=== PATIENT | female | born 1950 | race Caucasian/White ===

== ENCOUNTER 2022-05-21 22:45 | Observation (INO) | payer MEDICARE ==
[~2022-05-21] VITALS: Ht 170.2 cm; Wt 101.4 kg
--- NOTE | ~2022-05-21 | EKG ---
[facility] [address] [facility] [place], [place] [address] Draft EK completed, results pending confirmation PATIENT NAME: FEI WICK Electrocardiogram DATE OF : 50 PHYSICIAN: PRELIMINARY REPORT #: [id number] REPORT IS CONFIDENTIAL AND NOT TO BE RELEASED WITHOUT AUTHORIZATION
[~2022-05-21 22:45] MED LIST: ALVESCO6.1 G1 INH; ARNUITY ELLIPT50 MCG; BLACK ELDERBER1 EACH PO; CHROMIUM PICO200 MC1 PO; CYANOCOBAL1000 MCG/M IM; ELIQUIS5 MG PO; EYE DROPS15 ML; GLUCOSAMINE H1500 MG PO; HYDROCODON-ACE1 EA10 PO; K2 PLUS D3 TAB1 EACH PO; LIPITOR20 MG PO; MAGNESIUM500 MG PO; METOPROLOL TART25 MG; MULTI VITAMIN1 EACH PO; N-ACETYL-L-CYS600 MG PO; NASAL DECONGEST30 MG PO; PRADAXA150 MG PO; PROBIOTIC250 MG PO; SELRX180 ML TOP; SUPER B MAXI C0.4 MG PO; SUPERIOR DIGES1 EACH PO; VENTOLIN HFA18 GM INH; VITAMIN C500 M5 PO; ZINC50 MG PO
--- OUTSIDE RECORDS SUMMARY | 2022-05-21 22:48 | XMS ---
PreManage Notification: FEI WICK Security Contracts Specialist Events No recent Security Events currently on file CRITERIA MET - [facility] There are no care providers on record at this time. John has no Care Guidelines for this patient. Leo VISIT COUNT (12 MO.) 1 WILLIAM Thorpe TOTAL 1 NOTE: Visits indicate total known visits. ED/UCC VISIT TRACKING (12 MO.) 05/21/2022 22:46 WILLIAM Jain [place] TYPE: Emergency COMPLAINT: - POST OP ISSUE INPATIENT VISIT TRACKING (12 MO.) No inpatient visits to display in this time frame [email or web address]
[2022-05-22] MEDS ORDERED: VITAMIN D310 MC2 PO (03:14)
--- NOTE | 2022-05-22 03:44 | NUR ---
0250 - PT ARRIVED FROM ED VIA STRETCHER, ON ROOM AIR. COOPERATIVE 0305 - FLAT AFFECT, COOP WITH ASSESSMENT, UPPER ABD INCISION AREA W SUTURES IN PLACE, RED, RAISED, TENDER TO TOCUH, VERY FAINT TO RARE BOWEL TONES. DENIES PASSING RECTAL GAS, INCREAED ORAL BELCHING PRESENT. RECEIVED 2GRAM CEFEPIME IN ED, FLAGYL INFUSING AT THIS TIME. NPO, ORAL SWABS AT BEDSIDE. TRACE EDEMA TO ANKLES. HAS HOME CPAP WITH HER. RT NOTIFIED
--- NOTE | 2022-05-22 04:12 | NUR ---
received a tx from RT, home cpap inspected, at bedside. Pt up to recliner chair. IVF infusing , has tolerated IV abx well. IV site patent. legs elevated. call light at hands reach. npo, did own oral care
--- NOTE | 2022-05-22 04:48 | NUR ---
Pt on room air, lungs clear dim at bases. has home CPAP at bedside, received 2G Cefepine IV and Flagyl, tolerated well, IVF infusing w/o problems. Flat, irritable labile mood. cooperative, follows instrutions. Was medicated w Dilaudid 0.5mg IV per c/o h/a and abd pain. Abd distended, above umbilical area post op surgical sites w sutures in place, red edges, no drainge, very rare bowel tones auscultated, stated no bm for last 7days no rectal gas, increased oral belching present, no emesis. NPO, does own oral care.
--- NOTE | 2022-05-22 07:30 | NUR ---
Bedside report received form NOC RN. Pt is awake when we entered the room. She does wear CPAP. She's waiting for Dr Heard - she has a lot of questions. One of them is whether she'd be able to start bowel prep.
--- NOTE | 2022-05-22 08:30 | NUR ---
Dr Heard saw the patient. All home meds ordered. Dulcolax supp and Fleets enema ordered NOW. Pt would like to walk as suggested by physician. Abdomen still feels little tender after Sx. VS stable. Pt will get dulcolax supp after retrning back to the room.
[2022-05-22] MEDS ORDERED: HYDROCODON-ACE1 EAC8 PO (08:59)
[2022-05-22] MEDS ORDERED: METOPROLOL TART50 MG PO (09:00)
--- NOTE | 2022-05-22 09:17 | NUR ---
PATIENT AND I WALKED 1 LAP AROUND MED SURG. PATIENT BURPED A COUPLE OF TIMES.
--- NOTE | 2022-05-22 10:06 | NUR ---
Pt received Dulcolax supp. She is sitting on the toilet right now.
--- NOTE | 2022-05-22 10:30 | NUR ---
Pt was not able to have BM, but she feels it'll happen in near future.Pt is resting in the recliner. She would like to wait and see before fleets enema is administered. Miralax given. Positive BS in all four quadrants.
--- NOTE | 2022-05-22 10:31 | CONS ---
[facility] [address] [place], [place] [address] Signed DATE OF CONSULTATION: 05/22/2022 CHIEF COMPLAINT: Abdominal pain. HISTORY OF PRESENT ILLNESS: Fei is a 71-year-old female, who underwent repair of her recurrent incisional periumbilical hernia with mesh just three days ago. She done well intraop and postop. She was discharged to home. At home, she was not having any flatus or bowel movement. Apparently, she has had no bowel movement for 5 to 7 days. She had been traveling and said she cannot really go to the bathroom when she is away from home. We did not have her use a bowel prep prior to the surgery. She has had some abdominal distention and some belching. Her encouraged her to come to the emergency room for evaluation. In the emergency room, she is a little distended and a little tender around the incision, but otherwise no peritonitis. White count was up a little just over 11. CT scan showed some postoperative changes. I have been asked to admit her overnight and we started her on cefepime and Flagyl. She has had some flatus this morning, but otherwise about the same. She does use nasal CPAP for her sleep apnea. She had that in place this morning. Overall, she says she feels better. PAST MEDICAL HISTORY: 1. TIA. 2. Atrial fibrillation. 3. Asthma. 4. Hypertension. 5. Obesity. 6. Obstructive sleep apnea, requiring a nasal CPAP. PAST SURGICAL HISTORY: Includes ventral hernia repair x3, cholecystectomy, salpingo-oophorectomy, bilateral tubal ligation, and gastric bypass. SOCIAL HISTORY: She is and Dr. Sanders is her primary care provider. Unaware if she smokes or drinks. She is . FAMILY HISTORY: None. REVIEW OF SYSTEMS: She had 10 systems reviewed and really no new findings other than what we mentioned above. Electronically Signed By: DANY ISRAEL MD 05/22/22 1031 PATIENT NAME: FEI WICK CONSULTATION DATE OF : 50 REPORT #: [id number] PHYSICIAN: DANY ISRAEL MD PCP: NANDO SANDERS DO REPORT IS CONFIDENTIAL AND NOT TO BE RELEASED WITHOUT AUTHORIZATION [facility] [address] [place], [place] [address] Signed ALLERGIES: Aspirin and amoxicillin. MEDICATIONS: 1. Fluticasone. 2. Metoprolol. 3. Vitamin B12. 4. Lipitor. 5. Eyedrops. 6. Glucosamine. 7. Zinc. 8. Magnesium oxide. 9. Multivitamin. 10. Probiotic. 11. Pseudoephedrine. 12. Selenium. 13. Vitamin B complex. 14. Vitamin C. 15. Alvesco. 16. Albuterol. 17. Eliquis. PHYSICAL EXAMINATION: VITAL SIGNS: Her blood pressure is 134/60, heart rate is 55, respiratory rate 16, temperature is 98.9. She is 96% on room air. She is 5 feet 7 inches at 101 kg. GENERAL: Fei is a 71-year-old female lying supine in her hospital bed. She is in no acute distress. She removed her nasal CPAP, so we could talk this morning. ABDOMEN: Mildly distended with expected induration and some minimal tenderness around her incision. There is a little erythema, but I think that is all postop at this point. There was a little tympany as well. LABORATORY DATA: Her white blood cell count 12.5, hemoglobin 12.9, neutrophils 77. Her glucose is 140. COVID is negative. Urinalysis negative. Albuterol is 3.2. RADIOGRAPHIC STUDIES: CT scan of abdomen and pelvis is reviewed and we can see that she does have quite a bit of air-fluid levels in the right and transverse colon. Small bowel seems to be unremarkable. No obvious issues following the surgery. She has the expected inflammatory changes in the subcutaneous tissues after the surgery. ASSESSMENT AND PLAN: Fei is a 71-year-old female, who presents postop day #3 after repair of her recurrent periumbilical incisional hernia. It was certainly a moderate level surgery. She Electronically Signed By: DANY ISRAEL MD 05/22/22 1031 PATIENT NAME: FEI WICK CONSULTATION DATE OF : 50 REPORT #: [id number] PHYSICIAN: DANY ISRAEL MD PCP: NANDO SANDERS DO REPORT IS CONFIDENTIAL AND NOT TO BE RELEASED WITHOUT AUTHORIZATION [facility] [address] [place] [id number] Signed certainly seems to have some level of ileus and has been able to have a bowel movement now for about a week. This started prior to the surgery. She has had some flatus this morning, was hoping we could help her out with a suppository and enema to see if we can get things started. In the meantime, we will keep her on some IV fluids and liquid diet and some antibiotics. We will restart her p.o. medications. Hopefully this will settle down in a day or two and she will be able to go back home. She has expressed understanding and agrees with the above plan. Dany Israel MD ALB/MODL /[id number] cc: MD Nando Harkins DO Copies: DANY ISRAEL MD, ARIAN DO ~ Electronically Signed By: DANY ISRAEL MD 05/22/22 1031 PATIENT NAME: FEI WICK CONSULTATION DATE OF : 50 REPORT #: [id number] PHYSICIAN: DANY ISRAEL MD PCP: NANDO SANDERS DO REPORT IS CONFIDENTIAL AND NOT TO BE RELEASED WITHOUT AUTHORIZATION
[2022-05-22] MEDS ORDERED: LUBRICANT EYE D15 ML OPTH (12:23)
[2022-05-22] MEDS ORDERED: LUBRICANT EYE3.5 G2 OPTH (12:24)
--- NOTE | 2022-05-22 12:25 | NUR ---
MED REC COMPLETE
--- NOTE | 2022-05-22 14:05 | NUR ---
Pt used the restroom. On a way back she stated she felt like she was in Afib. Reported feeling jittery. VS obtained. Monitor HR was 87, but apical HR was 117-120. Dr Heard notified. STAT 12 lead EKG ordered. It showed Afib with RVR of 125. Dr Almeida/ Dr Walter was consulted. Dr Heard called back and ordered Tele, CXR, Mg, Phosp, and TSH. Labs were add-ons to am labs. TELE #9 applied. HR ranges between 111-136. Dr Walter in to check on Pt.
--- NOTE | 2022-05-22 17:20 | NUR ---
Pt was given manuelito barragan. The results: watery brown liquid with small mushy stool particles. Pt continues to have positive BS. HR was elevated (130-140) when Pt was sitting on a toilet. Dr Walter made aware.
--- NOTE | 2022-05-22 19:45 | NUR ---
RECEIVED REPORT FROM DAY SHIFT RN. PATIENT IS UP WALKING X1 LAP IN STALLINGS WITH JODY ESTRADA. PATIENT DENIES ANY PAIN OR NAUSEA.
--- NOTE | 2022-05-22 20:10 | NUR ---
REPORT GIVEN TO ZI CCU RN. PATIENT AND BELONGINGS ARE WITH PATIENT IN ROOM 127. PATIENT NOTIFIED OF FLOOR AND ROOM MOVEMENT.
--- NOTE | 2022-05-22 20:30 | NUR ---
PT ARRIVED TO THE FLOOR IN NO ACUTE DISTRESS. PT REPORTS FEELING BLAOTED AND DISTENDED, AWARE SHE IS IN AFIB. RATE IN THE 116'S , CARDIZEM STARTED PER MD ORDERS. PT SITTING IN THE CHAIR. WILL CONTINUE TO MONITOR
--- NOTE | 2022-05-22 22:00 | NUR ---
CALLED MD TO VERIFY LOPRESSOR IV WITH CARDIZEM GTT. PER OK TO GIVE MEDS CONCURRENTLY. VSS WILL CONTINUE TO MONITOR
--- NOTE | 2022-05-22 23:28 | NUR ---
PT UP TO BSC, C/O OF BEING COLD AND PEEING SEVERAL TIMES. IVF REDUCED, GRABBED PT A WARM BLANKET. CHANGED LEADS TO MONITOR AND REMOVED TELE BOX . RATES IN THE 100-110. CALL LIGHT WITHIN REACH WILL CONTINUE TO MONITOR.
--- NOTE | 2022-05-23 01:28 | NUR ---
PT UP TO THE BSC. READJUSTED BP CUFF, BP WDP. PT DENIES ANY CONCERNS AT THIS TIME. RATE IN THE 100-120. CALL LIGHT WITHIN REACH WILL CONTINUE TO MONITOR.
--- NOTE | 2022-05-23 03:53 | NUR ---
PT UP TO BSC , RATE 80-90 AT THIS TIME. DENIES ANY CONCERNS. CONTINUES TO HAVE FLATUS. CALL LIGHT WITHIN REACH WILL CONTINUE TO MONITOR.
--- NOTE | 2022-05-23 06:59 | NUR ---
PT SITTING UP IN THE CHAIR . PT DENIES ANY CONCERNS. RATE CONTROLLED AT THIS TIME 100-110. RESP EVEN AND UNLABORED. PT UP TO BATHROOM WILL CONTINUE TO MONITOR.
--- NOTE | 2022-05-23 07:30 | NUR ---
REPORT RECIEVED. PATIENT HAS BEEN AMBULATING IN STALLINGS. DENIES DIZZINESS.
--- NOTE | 2022-05-23 08:00 | NUR ---
SITTING UP IN CHAIR FOR BREAKFAST. MOVING WELL. DENIES PAIN, DIZZINESS OR SHORTNESS OF BEATH. CARDIZEM GTT INFUSING AT 3 MG/HR. IVF INFUISNG AT 25 ML/HR. WILL INCREASE TO 75 ML/HR AFTER BREAKFAST.
--- NOTE | 2022-05-23 09:15 | NUR ---
AMBULATED TO SHOWER. CARDIZEM AND IVF HELD DURING SHOWER.
--- NOTE | 2022-05-23 09:45 | NUR ---
TOLERATED SHOWER WELL. IVF INFUSING AT 75 ML/HR. CARDIZEM GTT AT 3 MG/HR. PATIENT DENIES SHORTNESS OF BREATH, NAUSEA, DIZZINESS.
--- NOTE | 2022-05-23 10:00 | NUR ---
DR. ALEXANDER HERE TO SEE PATIENT. CARDIZEM INCREASED TO 5 MG/HR. PATIENT SITTNG AT BEDSIDE.
--- NOTE | 2022-05-23 10:10 | NUR ---
LOPRESSOR 7.5 MG IV GIVEN PER ROUTINE ORDER. PATIENT TO COMMODE.
--- NOTE | 2022-05-23 10:46 | NUR ---
CARDIZEM REMAINS ON 5 MG/HR. DENIES DIZZINESS. IS W/O C/O. IVF INFUSING AT 75 ML/HR. DENIES NEED FOR PAIN MEDICATION.
--- NOTE | 2022-05-23 12:30 | NUR ---
TOOK LUNCH WELL. NO CHANGES. CARDIZEM GTT REMAINS AT 5 MG/HR.
--- NOTE | 2022-05-23 15:10 | NUR ---
AMBULATED IN HALLWAY FOR APPROX 8 MIN. WITH AMBULATION, HR STAYED UNDER 100. CARDIZEM DRIP AT 3 MG/HR. TOLERATED AMBULATION WELL.
--- NOTE | 2022-05-23 16:00 | NUR ---
ASSESSMENT DONE. NO CHANGES. SITTING IN CHAIR TALKING WITH HER . PATIENT DENIES HAVING ANY PROBLEMS.
--- NOTE | 2022-05-23 17:16 | NUR ---
TO COMMODE TO EXPELL SEMI LIQUID MEDIUM STOOL. DR. ALEXANDER AWARE.
--- NOTE | 2022-05-23 17:50 | NUR ---
PO MEDS GIVEN. WILL TURN OFF CARDIZEM GTT IN APPROX ONE HR. PATIENT IS SITTING UP IN CHAIR WATCHING VIDEOS ON PHONE.
--- NOTE | 2022-05-23 20:07 | NUR ---
RECEIVED REPORT FROM DAY SHIFT RN. PT SITTING UP IN THE CHAIR IN NO ACUTE DISTRESS. PT REPORTS FEELING WELL. VSS RATE CONTROLLED AT 70-80. PT DENIES ANY CONCERN AT THIS TIME. CALL LIGHT WITHIN REACH WILL CONTINUE TO MONITOR.
--- NOTE | 2022-05-23 23:28 | NUR ---
PT LAYING IN BED IN NO ACUTE DISTRESS. PT REPORTS SLEEPING FOR A FEW HOURS, PT DENIES ANY CONCERN AT THIS TIME. PT RATE CONTROLLED 90-100. RESP EVEN AND UNLABORED. PT TOOK CARDIAC MEDS TOLERATED WELL. CALL LIGHT WITHIN REACH WILL CONTINUE TO MONITOR.
--- NOTE | 2022-05-24 01:54 | NUR ---
PT SLEEPING IN BED IN NO ACUTE DISTRESS. PT RESP EVEN AND UNLABORED. RATE CONTROLLED CALL LIGHT WITHIN REACH WILL CONTINUE TO MONITOR.
--- NOTE | 2022-05-24 02:32 | NUR ---
PT UP TO BATHROOM. AMBULATES INDEPENDENTLY AND ABLE TO HOOK SELF UP . NO S.SX OF ANY DISTRESS . CALL LIGHT WITHIN REACH WILL CONTINUE TO MONITOR.
--- NOTE | 2022-05-24 04:34 | NUR ---
PT RESTING IN BED IN NO ACUTE DISTRESS. PT RESP EVEN AND UNLABORED. RATE CONTROLLED . CALL LIGHT WITHIN REACH WILL CONTINUE TO MONITOR.
--- NOTE | 2022-05-24 05:55 | NUR ---
PT LAYING IN BED IN NO ACUTE DISTRESS. PT RESP EVEN AND UNLABORED. VSS PT CONVERTED INTO SR AT 430. HR 55-60 WILL VERIFY WITH MD ABOUT GIVING PO MEDS THIS AM.
--- NOTE | 2022-05-24 06:44 | NUR ---
PER HELD OFF ON AM CARDIZEM AND METOPROLOL. WILL CONTINUE TO MONITOR
--- NOTE | 2022-05-24 07:38 | NUR ---
REPORT RECEIVED FROM ZI ESTRADA. IN TO SEE PT, SHE IS SITTING UP IN CHAIR EATING BREAKFAST, HAS NO REQUESTS AT THIS TIME AND NO COMPLAINTS. HR 70'S, SINUS RHYTHM.
--- NOTE | 2022-05-24 08:35 | NUR ---
PATIENT UP IN ROOM. VITALS AND I&OS CHARTED. WASHCLOTHS PROVIDED FOR SELF CARE. NO OTHER NEEDS A THIS TIME
--- NOTE | 2022-05-24 09:40 | NUR ---
IN TO DO AM MEDS, PT HAS NO QUESTIONS OR CONCERNS AT THIS TIME. PLAN OF CARE FOR THE DAY DISCUSSED WITH PT. PT NOT WANTING MIRALAX BUT DOES REQUEST SOME PRUNE JUICE.
--- NOTE | 2022-05-24 10:04 | NUR ---
DR ISRAEL IN TO SEE PT
--- NOTE | 2022-05-24 11:29 | NUR ---
PATIENT SITTING IN CHAIR. VITALS CHARTED. 2 IVS REMOVED PER RN. CALL LIGHT IN EASY REACH
--- NOTE | 2022-05-24 12:10 | NUR ---
PT GIVEN DISCHARGE INSTRUCTIONS THEN DISCHARGED TO HOME WITH .
--- NOTE | 2022-05-24 15:50 | DS ---
[facility] [address] [place], [place] [address] Signed ADMISSION DATE: 05/22/2022 DISCHARGE DATE: 05/24/2022 FINAL DIAGNOSIS: Postoperative ileus. PROCEDURE: CT scan of abdomen and pelvis. HISTORY OF PRESENT ILLNESS: Fei is a 71-year-old female I helped three days prior to this admission with a recurrent periumbilical incisional hernia. We repaired it with mesh and closed the defect primarily. The intraoperative course was unremarkable. She had been discharged to home. However, she came back on postoperative day #3 with some mild to moderate abdominal distention and bloating with minimal flatus. She told me she cannot go to the bathroom while she is at her own house. She had gone five days prior to the surgery and had no bowel movement. She had no bowel movement after the surgery. Her insisted she come back for evaluation. She had expected postoperative tenderness and her white count was borderline. CT scan showed the expected postoperative changes. She had some air-fluid levels actually in the right and transverse colon. Therefore, I was asked to admit her as above. HOSPITAL COURSE: Fei was admitted as above and we treated her conservatively with IV fluids and so forth. She has a history of paroxysmal atrial fibrillation. She then went into atrial fibrillation with a rapid ventricular rate likely from the inability to absorb her usual p.o. medications. Our Internal Medicine Service put her on IV medications and she has been back in sinus rhythm since early this morning. She has had six bowel movements now and lots of flatus. She looks and feels much better. Abdomen is quite soft and nontender. She has a little expected induration and ecchymoses around the incision, but there are no local signs or symptoms of infection. She is tolerating diet at this point. She was asking to go home. DISCHARGE PLANS AND MEDICATIONS: Fei will go home with no new prescriptions. She will resume her chronic medications at home. She can follow a regular diet. She can leave her incision open to air and shower and bathe as usual with soap and water. She can perform her activities of daily living including walking up and down stairs and showering and bathing as usual. She should not do any heavy pushing, pulling, or lifting over about 20 pounds. I will see her back in the office in about 7 to 10 days. She has expressed understanding and agrees with the Electronically Signed By: DANY ISRAEL MD 05/24/22 1550 PATIENT NAME: FEI WICK DISCHARGE SUMMARY DATE OF : 50 REPORT #: [id number] PHYSICIAN: DANY ISRAEL MD PCP: NANDO SANDERS DO REPORT IS CONFIDENTIAL AND NOT TO BE RELEASED WITHOUT AUTHORIZATION [address] [address] Signed above plan. MD JOSSE Harkins/TAMELA /[id number] cc: MD Nando Harkins DO Copies: DANY ISRAEL MD, ARIAN DO ~ Electronically Signed By: DANY ISRAEL MD 05/24/22 1550 PATIENT NAME: FEI WICK DISCHARGE SUMMARY DATE OF : 50 REPORT #: [id number] PHYSICIAN: DANY ISRAEL MD PCP: NANDO SANDERS DO REPORT IS CONFIDENTIAL AND NOT TO BE RELEASED WITHOUT AUTHORIZATION
== END 2022-05-24 12:10 | disposition home or self-care (01) ==
LOC: ED 22:45 → MS 22:47 → CCU 05-22 19:51
PROVIDERS: ADMIT Colon & Rectal Surgery; ATTEND Colon & Rectal Surgery
DX: K91.89 Other postprocedural complications and disorders of digestive system (principal); K56.7 Ileus, unspecified; I48.0 Paroxysmal atrial fibrillation; J45.909 Unspecified asthma, uncomplicated; E78.5 Hyperlipidemia, unspecified; I10 Essential (primary) hypertension; G47.33 Obstructive sleep apnea (adult) (pediatric); E66.9 Obesity, unspecified; Z88.6 Allergy status to analgesic agent; Z88.0 Allergy status to penicillin; Z20.822 Contact with and (suspected) exposure to COVID-19; Z68.32 Body mass index [BMI] 32.0-32.9, adult
CPT/HCPCS: 36415; 71045; 74176; 74177; 80048; 80053; 81001; 83690; 83735; 84100; 84443; 84484; 85025; 87502; 93005; 93010; 94640; 94760; J0692; J1170; J1650; J2405; J3480; J7040; J7060; J7121; Q9967; U0003

== ENCOUNTER 2024-06-18 07:52 | Day surgery (SDC) | payer MEDICARE ==
[2024-06-13 16:51] VITALS: BP 130/88
[~2024-06-18] VITALS: Ht 170.2 cm; Wt 106.8 kg
[~2024-06-18 07:52] MED LIST changes: +ATORVASTATIN CA20 MG PO; +CEFAZOLIN SODIUM 2 GM/20 ML SYR IV SCH; +DOXYCYCLINE HY100 MG PO; +ELDERBERRY ZIN1 EACH MM; +FLECAINIDE ACET50 MG PO; +FLOMAX0.4 MG PO; +HYDROCODON-ACE1 EAC8 PO; +HYDROmorphone HCL 1 MG/ML SYR IV PRN; +IBLOOD GLUCOSE TEST STRIP 1 EA TEST VI PRN; +K-TAB ER20 MEQ PO; +LACTATED RINGER'S 1,000 ML IV SCH; +LIDOCAINE HCL 1% 5 ML SDV INJ ONE; +LUBRICANT EYE D15 ML OPTH; +LUBRICANT EYE3.5 G2 OPTH; +METOPROLOL TART50 MG PO; +NAC500 MG PO; +OXYCODONE/APAP 5/325 TAB PO PRN; +QUERCETIN500 MG PO; +TRAMADOL HCL 50 MG TAB PO PRN; +VITAMIN D310 MC2 PO; +ondansetron HCL 4 MG/2 ML VIAL IV PRN
[2024-06-18] MEDS ORDERED: ondansetron HCL 4 MG/2 ML VIAL ONE (07:54)
[2024-06-18] MEDS ORDERED: propofoL 200 MG/20 ML VIAL ONE (07:54)
[2024-06-18] MEDS ORDERED: fentaNYL citrate 100 MCG/2 ML VIAL ONE ×2 (07:54→10:21)
[2024-06-18] MEDS ORDERED: LIDOCAINE HCL 2% 5 ML SDV ONE (07:54)
[2024-06-18 08:09] VITALS: BP 126/77
[2024-06-18] MEDS ORDERED: iopamidoL 30 ML VIAL ONE (08:17)
[2024-06-18] MEDS ORDERED: DEXAMETHASONE SOD PHOS 4 MG/ML VIAL ONE ×2 (08:56)
[2024-06-18] MEDS ORDERED: ACETAMINOPHEN 1,000 MG/100 ML VIAL ONE (09:00)
[2024-06-18] MEDS ORDERED: HYDROmorphone HCL 1 MG/ML SYR IV PRN (09:15)
[2024-06-18] MEDS ORDERED: ondansetron HCL 4 MG/2 ML VIAL IV PRN (09:15)
[2024-06-18] MEDS ORDERED: IBLOOD GLUCOSE TEST STRIP 1 EA TEST VI PRN (09:15)
[2024-06-18] MEDS ORDERED: NALOXONE HCL 0.4 MG SYR IV PRN (09:15)
[2024-06-18] MEDS ORDERED: fentaNYL citrate 50 MCG/ML SDV IV PRN (09:15)
[2024-06-18] MEDS ORDERED: KETOROLAC TROMETHAMINE 30 MG/ML VIAL ONE (09:15)
[2024-06-18] MEDS ORDERED: droPERidol 5 MG/2 ML VIAL IV PRN (09:15)
[2024-06-18] MEDS ORDERED: PROCHLORPERAZINE EDISYLATE 10 MG/2 ML VIAL IV PRN (09:15)
[2024-06-18] MEDS ORDERED: ePHEDrine sulfate 50 MG/ML AMP ONE (09:21)
--- NOTE | 2024-06-18 10:38 | NUR ---
06/18/24 Joya Hernandez PATIENT ARRIVES INTO PACU WITH SNORING RESPIRATIONS HEARD. JAW THRUST NECESSARY FOR GAS EXCHANGE. JAW THRUST BEING HELD BY NATALIE BRANNON.
[2024-06-18 11:01] VITALS: BP 117/66
--- NOTE | 2024-06-18 11:40 | NUR ---
PT AMBULATED TO THE RESTROOM. TOLERATED WELL. PT DENIES ANY DIZZINESS OR NAUSEA. PT ASSISTED BACK TO BED AFTER URINATING 300 ML OF RED URINE, NO CLOTS. SCD'S RECONNECTED. BED IN THE LOWEST POSITION, CALL LIGHT PROVIDED.
[2024-06-18 11:57] VITALS: BP 123/67
[2024-06-18 12:47] VITALS: BP 126/61
--- NOTE | 2024-06-18 16:11 | NUR ---
CRISTOBAL 1057-PT BACK TO ROOM FROM PACU ON . RECEIVED REPORT FROM [place] ESTRADA. PT IS DROWSY. RESP EVEN AND UNLABORED. DENIES NAUSEA. PROVIDED PT WITH WATER AND PUDDING. NO OTHER NEEDS AT THIS TIME. CALL LIGHT WITHIN REACH.
--- NOTE | 2024-06-18 16:33 | NUR ---
CRISTOBAL 1157-PT LAYING IN BED WITH EYES CLOSED. AWAKES EASILY AND ANSWERES QUESTIONS. RESP EVEN AND UNLABORED. PT STATES NOT HAVING MUCH PAIN. NO OTHER NEEDS AT THIS TIME. CALL LIGHT WITHIN REACH. IN ROOM WITH PT.
--- NOTE | 2024-06-18 16:39 | NUR ---
LE 1247-PT IS AWAKE. RESP EVEN AND UNLABORED. STILL NOT HAVING MUCH PAIN OTHER THAN WHEN SHE VOIDS. LE 1250-PT AMBULATES TO RESTROOM. LE 1253-PT BACK TO ROOM. PT IS READY TO GO HOME. PT WILL GET DRESSED.
--- NOTE | 2024-06-18 16:51 | NUR ---
CRISTOBAL 1305-WENT OVER DISCHARGE INSTRUCTIONS WITH PT. WENT OVER POSTOP MEDICATIONS. ALL QUESTIONS ANSWERED. PT AMBULATES TO WHEELCHAIR AND RIDE PROVIDED TO FRONT OF HOSPITAL WHERE WAS WAITING WITH THE CAR.
[2024-06-20 06:50] LABS: CALCULI MASS 33 mg (())
== END 2024-06-18 13:05 | disposition home or self-care (01) ==
LOC: OPS 07:52 → DS 07:52 → OPS 08:40 → DS 10:00 → OPS 11:05
PROVIDERS: ATTEND Urology
PROC: BT1FZZZ Fluoroscopy of Left Kidney, Ureter and Bladder (ICD-10-PCS; 2024-06-18)
PROC: 0TC78ZZ Extirpation of Matter from Left Ureter, Via Natural or Artificial Opening Endoscopic (ICD-10-PCS; principal; 2024-06-18 08:40)
PROC: 0T778DZ Dilation of Left Ureter with Intraluminal Device, Via Natural or Artificial Opening Endoscopic (ICD-10-PCS; 2024-06-18 08:40)
DX: N20.1 Calculus of ureter (principal); I10 Essential (primary) hypertension; J45.909 Unspecified asthma, uncomplicated; I48.0 Paroxysmal atrial fibrillation; G47.33 Obstructive sleep apnea (adult) (pediatric); Z88.1 Allergy status to other antibiotic agents; Z88.8 Allergy status to other drugs, medicaments and biological substances
CPT/HCPCS: 00910; 74420; 82365; C1769; C2617; J0131; J1100; J1885; J2001; J2405; J2704; J3010; Q9967

== ENCOUNTER 2025-10-16 16:58 | Emergency (ER) | payer MEDICARE ==
[~2025-10-16] VITALS: Ht 170.2 cm; Wt 111.0 kg
[~2025-10-16 16:58] MED LIST changes: +APPLE CIDER VI500 MG PO; -CEFAZOLIN SODIUM 2 GM/20 ML SYR IV SCH; +COLLAGEN SKIN1 EACH PO; +FLONASE ALLERG9.9 ML NAS; -HYDROmorphone HCL 1 MG/ML SYR IV PRN; -IBLOOD GLUCOSE TEST STRIP 1 EA TEST VI PRN; -LACTATED RINGER'S 1,000 ML IV SCH; -LIDOCAINE HCL 1% 5 ML SDV INJ ONE; -OXYCODONE/APAP 5/325 TAB PO PRN; +SOOTHE XP 1%-41 EACH OP; -TRAMADOL HCL 50 MG TAB PO PRN; +ZINC30 MG PO; -ondansetron HCL 4 MG/2 ML VIAL IV PRN
[2025-10-16 17:51] LABS: BLOOD/HGB, URINE LARGE (Negative); KETONE, URINE NEGATIVE (Negative); LEUK ESTERASE, URINE TRACE (negative); NITRITE, URINE NEGATIVE (negative)
[2025-10-16 17:59] LABS: BACTERIA, URINE NONE SEEN /hpf (negative); CASTS, URINE NONE SEEN \\lpf; CRYSTALS, URINE NONE SEEN (0-1+); EPITHELIAL CELLS, URINE SQUAMOUS 1+ /lpf (0-1+); REFLEX CULTURE, URINE No (No)
[2025-10-16 18:02] LABS: BASOPHILS 0.7 % (0.1-1.2); EOSINOPHILS 0.9 % (0.7-5.8); LYMPHOCYTES 24.4 % (19.3-51.7); MCH 31.0 PG (25.6-32.2); MCHC 32.5 g/dL (32.2-35.5); MCV 95.3 fL (79.4-94.8); MONOCYTES 6.7 % (4.7-12.5); NEUTROPHILS 67.1 % (34.0-71.1); RBC 4.94 M/uL (3.93-5.22)
[2025-10-16] MEDS ORDERED: METOPROLOL SUC200 MG PO (18:12)
[2025-10-16 18:17] LABS: ALT (SGPT) 21.0 U/L (14-59); AST (SGOT) 15.0 U/L (15-37); GLOMERULAR FILTRATION RATE,EST 69.0 mL/min (>60); PROTEIN, TOTAL 7.3 g/dL (6.4-8.2); UREA NITROGEN 16.0 mg/dL (7-18)
[2025-10-16] MEDS ORDERED: HYDROmorphone HCL 1 MG/ML SYR IV ONE (18:30)
[2025-10-16] MEDS ORDERED: SODIUM CHLORIDE 0.9% 1,000 ML IV PRN (18:30)
[2025-10-16] MEDS ORDERED: METOPROLOL SUCCINATE 50 MG TABCR PO ONE (21:00)
[2025-10-16] MEDS ORDERED: APIXABAN 5 MG TAB PO ONE (21:00)
[2025-10-16] MEDS ORDERED: ONDANSETRON ODT8 MG PO ×2 (21:18→21:40)
[2025-10-16] MEDS ORDERED: MACROBID 100 M100 MG PO ×2 (21:18→21:40)
[2025-10-16] MEDS ORDERED: PERCOCET 5-3251 EACH PO (21:18)
[2025-10-16] MEDS ORDERED: TAMSULOSIN HCL0.4 MG PO ×2 (21:18→21:40)
[2025-10-16] MEDS ORDERED: TAMSULOSIN HCL 0.4 MG CAP PO ONE (21:45)
[2025-10-16] MEDS ORDERED: ONDANSETRON 4 MG HOME.PACK SL ONE (21:45)
[2025-10-16] MEDS ORDERED: OXYCODONE/ACETAMINOPHEN 1 TAB HOME.PACK PO ONE (21:45)
[2025-10-16 22:10] VITALS: BP 108/72
== END 2025-10-16 22:12 | disposition home or self-care (01) ==
LOC: ED 16:58
PROVIDERS: Emergency Medicine
DX: N13.2 Hydronephrosis with renal and ureteral calculous obstruction (principal); J45.909 Unspecified asthma, uncomplicated; I10 Essential (primary) hypertension; Z86.73 Personal history of transient ischemic attack (TIA), and cerebral infarction without residual deficits; Z79.899 Other long term (current) drug therapy; Z88.6 Allergy status to analgesic agent; Z88.0 Allergy status to penicillin; Z91.018 Allergy to other foods
CPT/HCPCS: 36415; 74176; 80053; 81001; 85025; 96365; 96375; 99284-25; A9270; J0696; J1171; J2405; J7030